=== PATIENT | female | born 1995 | race Two or more races ===

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

== ENCOUNTER 2017-02-19 12:42 | Emergency (ER) | payer MEDICAID ==
--- NOTE | 2017-02-19 12:57 | EDPHY ---
H & P Stated Complaint: PHILLIPS/COUGH/FEVER/NAUSEA/BREAST INFECTION Time Seen by Provider: 02/19/17 12:52 HPI/ROS: CHIEF COMPLAINT: fever, breast pain HISTORY OF PRESENT ILLNESS: 21-year-old female presents emergency department complaining of fever and chest pain and redness. Patient is 21 days ago . She has inverted nipples and had mastitis when she left the hospital. Patient has been pumping every 2 hours and massage her breasts. Patient was prescribed 7 days of Keflex on February 06, she has 3 pills remaining in the bottle, reports she stopped taking them 4 days ago. If she was taking them like she was prescribed they should have been finished 7 days ago. Patient reports her symptoms improved when she started the antibiotics and resolved for 2 weeks, her fever, breast pain and redness returned yesterday. Patient reports a temperature of 103degrees, right breast is worse than left. She has been pumping and massaging them. Patient reports a dry cough for the past 2 weeks. No sore throat, no ear pain, occasional post-tussive emesis. REVIEW OF SYSTEMS: A comprehensive 10 point review of systems is otherwise negative aside from elements mentioned in the history of present illness. Source: Patient Exam Limitations: No limitations - Personal History LMP (Females 10-55): Unknown Current Tetanus/Diphtheria Vaccine: Yes Current Tetanus Diphtheria and Acellular Pertussis (TDAP): Yes Tetanus Vaccine Date: <10 years - Medical/Surgical History Hx Asthma: No Hx Chronic Respiratory Disease: No Hx Diabetes: No Hx Cardiac Disease: No Hx Renal Disease: No Hx Cirrhosis: No Hx Alcoholism: No Hx HIV/AIDS: No Hx Splenectomy or Spleen Trauma: No Other PMH: anemia - Social History Smoking Status: Never smoked Constitutional: Initial Vital Signs Temperature (C) 37.4 C 02/19/17 12:45 Heart Rate 125 H 02/19/17 12:45 Respiratory Rate 18 02/19/17 12:45 Blood Pressure 106/70 02/19/17 12:45 O2 Sat (%) 94 02/19/17 12:45 O2 Delivery Mode Room Air Allergies/Adverse Reactions: No Known Allergies Allergy (Unverified 02/19/17 12:45) Home Medications: Medication Instructions Recorded IRON 1 tab PO BID 11/23/16 1 tab PO DAILY 11/23/16 Cephalexin [Keflex] 500 mg PO QID 14 Days 02/19/17 Hydrocodone/APAP 5/325 [[place] 1 tab PO Q4H PRN #14 tab 02/19/17 5/325] Medical Decision Making - Diagnostics Imaging Results: Imaging Impressions Breast Ultrasound 02/19/17 13:54 Impression: 1. Right breast cellulitis and mastitis by history. 2. No evidence of right breast drainable abscess, focal fluid collection, or suspicious findings. Findings and recommendations discussed with Emergency Department physician, Ashlie Martinez NP, at 1509 hour, 02/19/2017. Final report concurs with initial preliminary interpretation. Chest X-Ray 02/19/17 14:48 Impression: Normal except for minimal airways disease. No pneumonia or effusion. Chest x-ray independently reviewed by me Imaging: Discussed imaging studies w/ director call center sales Radiologist ED Course/Re-evaluation: 21-year-old female presents with mastitis. She took a partial course of Keflex and stopped 4 days ago, her symptoms returned yesterday with a fever of 103, bilateral breast pain right worse than left and redness. IV established, CBC, chemistry panel, lactate wound culture of breast milk expressed by me sent to the lab, urinalysis and chest xray ordered. Patient meets sepsis criteria with an elevated heart rate of 125, temperature of 37.4degrees and a source for infection. Her lactate is 1.2 and she has a normal creatinine, she does not meet severe sepsis criteria. Patient is given 2 L of normal saline. The ux consultant has come to speak with the patient. Patient has an elevated white blood cell count at 24,000 with a left shift. Chest x-ray shows airway disease, patient sounds like she has bronchitis, has had a cough for 2 weeks. No evidence of pneumonia. Urinalysis shows 15-25 WBCs. Ultrasound of the right breast shows no evidence of abscess. Patient is given Tylenol in the emergency department, repeat vital signs show a normal heart rate, normal blood pressure in a temperature of 37.0degrees. She is discharged home with a prescription for Keflex, discussed with her the importance of taking all of this medication, she is sent home with a prescription for albuterol inhaler and [place] to take as needed for cough. She has a follow-up appointment with Dr. Quick on Friday. She is given strict return precautions for worsening symptoms. Differential Diagnosis: Diagnosis considered but not limited to mastitis, abscess, cellulitis, pneumonia - Data Points Laboratory Results: Laboratory Results 02/19/17 13:06 02/19/17 13:06 02/19/17 02/19/17 02/19/17 15:40 13:06 13:06 WBC RBC Hgb Hct MCV MCH MCHC RDW Plt Count MPV Neut % (Auto) Lymph % (Auto) [place] % (Auto) Eos % (Auto) Baso % (Auto) Nucleat RBC Rel Count Absolute Neuts (auto) Absolute Lymphs (auto) Absolute Monos (auto) Absolute Eos (auto) Absolute Basos (auto) Absolute Nucleated RBC Immature Gran % Immature Gran # VBG Lactic Acid 1.2 mmol/L mmol/L (0.7-2.1) Sodium Potassium Chloride Carbon Dioxide Anion Gap BUN Creatinine Estimated GFR Glucose Calcium Beta HCG, Qual NEGATIVE Urine Color YELLOW Urine Appearance HAZY Urine pH 6.0 (5.0-7.5) Ur Specific [place] 1.017 (1.002-1.030) Urine Protein NEGATIVE (NEGATIVE) Urine Ketones NEGATIVE (NEGATIVE) Urine Blood 2+ H (NEGATIVE) Urine Nitrate NEGATIVE (NEGATIVE) Urine Bilirubin NEGATIVE (NEGATIVE) Urine Urobilinogen 4.0 EU H EU (0.2-1.0) Ur Leukocyte Esterase 1+ H (NEGATIVE) Urine RBC 5-10 /hpf H /hpf (0-3) Urine WBC 25-50 /hpf H /hpf (0-3) Ur Epithelial Cells TRACE /lpf /lpf (NONE-1+) Urine Bacteria TRACE /hpf H /hpf (NONE SEEN) Urine Mucus TRACE /lpf /lpf (NONE-1+) Ur Culture Indicated? INDICATED H (NI) Urine Glucose NEGATIVE (NEGATIVE) 02/19/17 02/19/17 13:06 13:06 WBC 24.00 10^3/uL H 10^3/uL (3.80-9.50) RBC 3.72 10^6/uL L 10^6/uL (4.18-5.33) Hgb 11.5 g/dL L g/dL (12.6-16.3) Hct 33.9 % L % (38.0-47.0) MCV 91.1 fL fL (81.5-99.8) MCH 30.9 pg pg (27.9-34.1) MCHC 33.9 g/dL g/dL (32.4-36.7) RDW 12.6 % % (11.5-15.2) Plt Count 314 10^3/uL 10^3/uL (150-400) MPV 10.0 fL fL (8.7-11.7) Neut % (Auto) 86.4 % H % (39.3-74.2) Lymph % (Auto) 6.3 % L % (15.0-45.0) [place] % (Auto) 6.1 % % (4.5-13.0) Eos % (Auto) 0.2 % L % (0.6-7.6) Baso % (Auto) 0.2 % L % (0.3-1.7) Nucleat RBC Rel Count 0.0 % % (0.0-0.2) Absolute Neuts (auto) 20.75 10^3/uL H 10^3/uL (1.70-6.50) Absolute Lymphs (auto) 1.50 10^3/uL 10^3/uL (1.00-3.00) Absolute Monos (auto) 1.47 10^3/uL H 10^3/uL (0.30-0.80) Absolute Eos (auto) 0.05 10^3/uL 10^3/uL (0.03-0.40) Absolute Basos (auto) 0.04 10^3/uL 10^3/uL (0.02-0.10) Absolute Nucleated RBC 0.00 10^3/uL 10^3/uL (0-0.01) Immature Gran % 0.8 % % (0.0-1.1) Immature Gran # 0.19 10^3/uL H 10^3/uL (0.00-0.10) VBG Lactic Acid Sodium 139 mEq/L mEq/L (134-144) Potassium 3.4 mEq/L L mEq/L (3.5-5.2) Chloride 102 mEq/L mEq/L (97-110) Carbon Dioxide 24 mEq/l mEq/l (22-31) Anion Gap 13 mEq/L mEq/L (8-16) BUN 5 mg/dL L mg/dL (7-23) Creatinine 0.5 mg/dL L mg/dL (0.6-1.0) Estimated GFR > 60 Glucose 78 mg/dL mg/dL (70-100) Calcium 8.9 mg/dL mg/dL (8.5-10.4) Beta HCG, Qual Urine Color Urine Appearance Urine pH Ur Specific [place] Urine Protein Urine Ketones Urine Blood Urine Nitrate Urine Bilirubin Urine Urobilinogen Ur Leukocyte Esterase Urine RBC Urine WBC Ur Epithelial Cells Urine Bacteria Urine Mucus Ur Culture Indicated? Urine Glucose Medications Given: Discontinued Medications Acetaminophen (Tylenol) 650 mg PO EDNOW ONE Stop: 02/19/17 13:23 Last Admin: 02/19/17 13:58 Dose: 650 mg Sodium Chloride (Ns) 1,000 mls @ 0 mls/hr IV ONCE ONE PRN Reason: Wide Open Stop: 02/19/17 13:52 Last Admin: 02/19/17 13:59 Dose: 1,000 mls Departure - Departure Disposition: Home, Routine, Self-Care Clinical Impression: Mastitis, acute, Bronchitis Urinary tract infection Qualifiers: Urinary tract infection type: acute cystitis Hematuria presence: without hematuria Qualified Code(s): N30.00 - Acute cystitis without hematuria Condition: Good Instructions: Mastitis (ED), Urinary Tract Infection in Women (ED), Acute Bronchitis (ED) Additional Instructions: Follow-up as discussed with the ux consultant. Warm compresses to your breasts 5 times a day for 5-10 minutes. You need to pump every 2 hours even in the middle of the night. Take your antibiotics as prescribed 4 times a day for 14 days. It is very important you take all of these. This will treat your breast infection and urinary tract infection. Use albuterol inhaler 2 puffs every 4-6 hours as needed for cough. Take 1/2 to 1 Vicodin every 4-6 hours as needed for cough, this will cause drowsiness, do not drive or operate any machinery while taking this. Take 600 mg of ibuprofen every 8 hours with food for 5 days. Follow-up with your primary care doctor as scheduled on Friday, return to the emergency department for worsening symptoms. Referrals: Ajith Quick MD [Primary Care Provider] - As per Instructions Prescriptions: Cephalexin [Keflex] 500 mg PO QID 14 Days Hydrocodone/APAP 5/325 [[place] 5/325] 1 tab PO Q4H PRN #14 tab PRN Reason: Pain, Moderate
[2017-02-19 13:16] LABS: % IMMATURE GRANULYOCYTES 0.8 % (0.0-1.1); ABSOLUTE IMMATURE GRANULOCYTES 0.19 10^3/uL (0.00-0.10); ADD DIFF? NO; ADD MORPH? NO; ADD SCAN? NO; ATYPICAL LYMPHOCYTE FLAG 0 (0-99); FRAGMENT RBC FLAG 0 (0-99); HEMATOCRIT 33.9 % (38.0-47.0); HEMOGLOBIN 11.5 g/dL (12.6-16.3); LEFT SHIFT FLG 40 (0-99); LIPEMIA HEMOLYSIS FLAG 90 (0-99); MEAN CELL HEMOGLOBIN 30.9 pg (27.9-34.1); MEAN CELL HEMOGLOBIN CONCENTR. 33.9 g/dL (32.4-36.7); MEAN CELL VOLUME 91.1 fL (81.5-99.8); PLATELET CLUMPS FLAG 0 (0-99); PLATELET COUNT 314 10^3/uL (150-400); RED BLOOD CELL COUNT 3.72 10^6/uL (4.18-5.33); RED CELL DISTRIBUTION WIDTH 12.6 % (11.5-15.2)
[2017-02-19] MEDS ORDERED: ACETAMINOPHEN 325 MG TAB PO ONE (13:22)
[2017-02-19 13:35] LABS: ANION GAP 13 mEq/L (8-16); CALCIUM 8.9 mg/dL (8.5-10.4); CARBON DIOXIDE 24 mEq/l (22-31); CHLORIDE 102 mEq/L (97-110); CREATININE 0.5 mg/dL (0.6-1.0); GLOMERULAR FILTRATION RATE > 60; GLUCOSE 78 mg/dL (70-100); POTASSIUM 3.4 mEq/L (3.5-5.2); SODIUM 139 mEq/L (134-144)
[2017-02-19] MEDS ORDERED: NS 1,000 ML IV ONE (13:51)
[2017-02-19 14:01] VITALS: O2SAT 96
[2017-02-19 15:54] LABS: COLOR YELLOW; LEUKOCYTE ESTERASE,URINE 1+ (NEGATIVE); NITRITE,URINE NEGATIVE (NEGATIVE)
[2017-02-19 15:56] LABS: BACTERIA TRACE /hpf (NONE SEEN); MUCUS TRACE /lpf (NONE-1+); WBC,URINE 25-50 /hpf (0-3)
[2017-02-19 16:31] VITALS: BP 109/54; PULSE 92; RESP 16; TEMP 98.2
== END 2017-02-19 16:28 | disposition home or self-care (01) ==
DX: N61.0 Mastitis without abscess (principal); J20.9 Acute bronchitis, unspecified; N30.00 Acute cystitis without hematuria; B96.89 Other specified bacterial agents as the cause of diseases classified elsewhere

== ENCOUNTER 2017-10-05 11:43 | Emergency (ER) | payer MEDICAID ==
[2017-10-05 11:48] VITALS: RESP 18
[2017-10-05] MEDS ORDERED: HYOSCYAMINE SULFATE 0.125 MG TAB PO ONE (12:12)
[2017-10-05] MEDS ORDERED: LIDOCAINE 2% VISCOUS 15 ML UDCUP PO ONE (12:12)
[2017-10-05] MEDS ORDERED: MAG HYDROX/AL HYDROX/SIMETH 30 ML UDCUP PO ONE (12:12)
--- NOTE | 2017-10-05 12:14 | EDPHY ---
H & P Stated Complaint: Epigastric pain w/nausea since last night after eating at [employer] Time Seen by Provider: 10/05/17 12:05 HPI/ROS: CHIEF COMPLAINT: Epigastric and right upper quadrant pain since last evening HISTORY OF PRESENT ILLNESS: 22-year-old female complaining of epigastric right upper quadrant pain since last evening with mild nausea. Reproducible with palpation. No vomiting. Bowel movements normal. No fever or chills. No radiation pain. No alcohol use. No chronic NSAID use. PRIMARY CARE PROVIDER:[facility] REVIEW OF SYSTEMS: A ten point review of systems was performed and is negative with the exception of the items mentioned in the HPI PAST MEDICAL & SURGICAL HISTORY: no history of abdominal surgeries. SOCIAL HISTORY:nonsmoker. PHYSICAL EXAM (Prior to examination, patient consented to physical exam, hands were washed and my usual and customary physical exam procedures followed) 1) GENERAL: Well-developed, well-nourished, alert and oriented. Appears to be in no acute distress. 2) HEAD: Normocephalic, atraumatic 3) HEENT: Pupils equal, round, reactive to light bilaterally. Sclera anicteric. 4) NECK: Full range of motion, no meningeal signs. 5) LUNGS: Clear auscultation bilaterally, no wheezes, no rhonchi, no retractions. 6) HEART: Regular rate and rhythm, no murmur, no heave, no gallop. 7) ABDOMEN: No guarding, tender to palpation epigastrium with positive Murray's , negative Rovsing's, negative peritoneal sign, 8) MUSCULOSKELETAL: Moving all extremities, no focal areas of tenderness, no obvious trauma. No peripheral edema or discoloration. 9) BACK: No CVA tenderness, no midline vertebral tenderness, no fluctuance, no step-off, no obvious trauma, no visual or palpable abnormality. 10) SKIN: No rash, no petechiae. 11) Psychiatric: Patient is oriented X 3, there is no agitation. DIFFERENTIAL DIAGNOSIS: In no particular order, including but not limited to biliary colic, cholecystitis, peptic ulcer disease, pancreatitis, and gastroenteritis. This is a partial list of diagnoses considered. These considerations are based on history, physical exam, past history and reassessment. - Personal History LMP (Females 10-55): Now Tetanus Vaccine Date: <10 years - Medical/Surgical History Hx Asthma: No Hx Chronic Respiratory Disease: No Hx Diabetes: No Hx Cardiac Disease: No Hx Renal Disease: No Hx Cirrhosis: No Hx Alcoholism: No Hx HIV/AIDS: No Hx Splenectomy or Spleen Trauma: No Other PMH: anemia - Social History Smoking Status: Never smoked Constitutional: Initial Vital Signs Temperature (C) 37.1 C 10/05/17 11:45 Heart Rate 87 10/05/17 11:45 Respiratory Rate 18 10/05/17 11:45 Blood Pressure 112/66 10/05/17 11:45 O2 Sat (%) 95 10/05/17 11:45 O2 Delivery Mode Room Air Allergies/Adverse Reactions: No Known Allergies Allergy (Verified 10/05/17 11:48) Home Medications: Medication Instructions Recorded Pantoprazole Sodium [Protonix 40mg 40 mg PO DAILY #30 tab 10/05/17 (RX)] Medical Decision Making - Diagnostics Imaging Results: Imaging Impressions Abdomen Ultrasound 10/05/17 12:12 Impression: Normal study. Findings were discussed with Dr. Nereida Orozco will convey the information to Jac De Luna PA-C at 13:38, on 10/05/2017. Images reviewed myself ED Course/Re-evaluation: 2:00 p.m.: Re-evaluation with serial examinations. Discussed her diagnostic results including normal ultrasound. She has been given GI cocktail and notes improvement symptoms. Doubt acute cholecystitis, doubt acute pancreatitis, doubt PE, doubt OR. We discussed possibility of peptic ulcer disease. Upon speaking the patient further she notes that intermittently for the past few years she has had similar symptoms. We discussed usual customary dietary precautions. She has no history of chronic NSAID use. Starting the patient on a proton pump inhibitor. Recommend GI follow-up as well as primary care follow- up. She feels comfortable being discharged all questions and concerns addressed by myself.Care of patient under supervision of secondary supervising physician Dr Orozco . - Data Points Laboratory Results: Laboratory Results 10/05/17 12:00 10/05/17 12:00 10/05/17 10/05/17 10/05/17 12:00 12:00 12:00 WBC 3.84 10^3/uL 10^3/uL (3.80-9.50) RBC 4.48 10^6/uL 10^6/uL (4.18-5.33) Hgb 13.8 g/dL g/dL (12.6-16.3) Hct 39.7 % % (38.0-47.0) MCV 88.6 fL fL (81.5-99.8) MCH 30.8 pg pg (27.9-34.1) MCHC 34.8 g/dL g/dL (32.4-36.7) RDW 13.0 % % (11.5-15.2) Plt Count 207 10^3/uL 10^3/uL (150-400) MPV 10.4 fL fL (8.7-11.7) Neut % (Auto) 74.7 % H % (39.3-74.2) Lymph % (Auto) 18.2 % % (15.0-45.0) [place] % (Auto) 5.5 % % (4.5-13.0) Eos % (Auto) 1.0 % % (0.6-7.6) Baso % (Auto) 0.3 % % (0.3-1.7) Nucleat RBC Rel Count 0.0 % % (0.0-0.2) Absolute Neuts (auto) 2.87 10^3/uL 10^3/uL (1.70-6.50) Absolute Lymphs (auto) 0.70 10^3/uL L 10^3/uL (1.00-3.00) Absolute Monos (auto) 0.21 10^3/uL L 10^3/uL (0.30-0.80) Absolute Eos (auto) 0.04 10^3/uL 10^3/uL (0.03-0.40) Absolute Basos (auto) 0.01 10^3/uL L 10^3/uL (0.02-0.10) Absolute Nucleated RBC 0.00 10^3/uL 10^3/uL (0-0.01) Immature Gran % 0.3 % % (0.0-1.1) Immature Gran # 0.01 10^3/uL 10^3/uL (0.00-0.10) Sodium 143 mEq/L mEq/L (134-144) Potassium 4.0 mEq/L mEq/L (3.5-5.2) Chloride 105 mEq/L mEq/L (97-110) Carbon Dioxide 23 mEq/l mEq/l (22-31) Anion Gap 15 mEq/L mEq/L (8-16) BUN 12 mg/dL mg/dL (7-23) Creatinine 0.6 mg/dL mg/dL (0.6-1.0) Estimated GFR > 60 Glucose 79 mg/dL mg/dL (70-100) Calcium 9.5 mg/dL mg/dL (8.5-10.4) Total Bilirubin 0.5 mg/dL mg/dL (0.1-1.4) Conjugated Bilirubin 0.2 mg/dL mg/dL (0.0-0.5) Unconjugated Bilirubin 0.3 mg/dL mg/dL (0.0-1.1) AST 18 IU/L IU/L (14-46) ALT 27 IU/L IU/L (9-52) Alkaline Phosphatase 77 IU/L IU/L (38-126) Total Protein 7.4 g/dL g/dL (6.3-8.2) Albumin 4.3 g/dL g/dL (3.5-5.0) Lipase 48 IU/L IU/L (23-300) Beta HCG, Qual NEGATIVE Medications Given: Discontinued Medications Al Hydroxide/Mg Hydroxide (Maalox Susp) 30 ml PO ONCE ONE Stop: 10/05/17 12:13 Last Admin: 10/05/17 12:16 Dose: 30 ml Hyoscyamine Sulfate (Levsin, Hyomax-Sl) 0.25 mg PO ONCE ONE Stop: 10/05/17 12:13 Last Admin: 10/05/17 12:16 Dose: 0.25 mg Lidocaine (Lidocaine 2% Viscous) 15 ml PO ONCE ONE Stop: 10/05/17 12:13 Last Admin: 10/05/17 12:16 Dose: 15 ml Departure - Departure Disposition: Home, Routine, Self-Care Clinical Impression: Epigastric pain Condition: Good Instructions: Epigastric Pain (ED) Additional Instructions: Do not eat spicy foods, avoid caffeine, soda, alcohol. Take yourr medicine as prescribed Referrals: Ajith Quick MD [Primary Care Provider] - 1-2 days without fail Herman Gtz MD [Medical Doctor] - 5-7 days, call for appt. (Dr Gtz is a dry plasterer) Prescriptions: Pantoprazole Sodium [Protonix 40mg (RX)] 40 mg PO DAILY #30 tab
[2017-10-05 12:18] LABS: % IMMATURE GRANULYOCYTES 0.3 % (0.0-1.1); ABSOLUTE IMMATURE GRANULOCYTES 0.01 10^3/uL (0.00-0.10); ADD DIFF? NO; ADD MORPH? NO; ADD SCAN? NO; ATYPICAL LYMPHOCYTE FLAG 10 (0-99); FRAGMENT RBC FLAG 0 (0-99); HEMATOCRIT 39.7 % (38.0-47.0); HEMOGLOBIN 13.8 g/dL (12.6-16.3); LEFT SHIFT FLG 0 (0-99); LIPEMIA HEMOLYSIS FLAG 90 (0-99); MEAN CELL HEMOGLOBIN 30.8 pg (27.9-34.1); MEAN CELL HEMOGLOBIN CONCENTR. 34.8 g/dL (32.4-36.7); MEAN CELL VOLUME 88.6 fL (81.5-99.8); MEAN PLATELET VOLUME 10.4 fL (8.7-11.7); PLATELET CLUMPS FLAG 0 (0-99); PLATELET COUNT 207 10^3/uL (150-400); RED BLOOD CELL COUNT 4.48 10^6/uL (4.18-5.33)
[2017-10-05 12:40] LABS: ALANINE AMINOTRANSFERASE 27 IU/L (9-52); ALBUMIN 4.3 g/dL (3.5-5.0); ALKALINE PHOSPHATASE 77 IU/L (38-126); ANION GAP 15 mEq/L (8-16); ASPARTATE AMINOTRANSFERASE 18 IU/L (14-46); BILIRUBIN,TOTAL 0.5 mg/dL (0.1-1.4); BILIRUBIN-CONJUGATED 0.2 mg/dL (0.0-0.5); BILIRUBIN-UNCONJUGATED 0.3 mg/dL (0.0-1.1); CALCIUM 9.5 mg/dL (8.5-10.4); CARBON DIOXIDE 23 mEq/l (22-31); CHLORIDE 105 mEq/L (97-110); CREATININE 0.6 mg/dL (0.6-1.0); GLOMERULAR FILTRATION RATE > 60; GLUCOSE 79 mg/dL (70-100); SODIUM 143 mEq/L (134-144); TOTAL PROTEIN 7.4 g/dL (6.3-8.2)
[2017-10-05 14:18] VITALS: BP 108/65; PULSE 78; TEMP 98.1; O2SAT 99
== END 2017-10-05 14:18 | disposition home or self-care (01) ==
DX: R10.13 Epigastric pain (principal)

== ENCOUNTER 2019-02-01 21:31 | Emergency (ER) | payer MEDICAID ==
--- NOTE | 2019-02-01 21:50 | EDPHY ---
H & P Stated Complaint: Burning in chest when she touches epigastric, radiates to upper back Time Seen by Provider: 02/01/19 21:53 HPI/ROS: HPI CHIEF COMPLAINT: Pain epigastric radiating to chest. HISTORY OF PRESENT ILLNESS: 23-year-old female, presents emergency room by private vehicle for burning discomfort in epigastric region that radiates into the chest. She reports burning sensation mainly in her epigastric region, goes substernal up into her chest. Does not go to her throat. She believes it may be reflux. She has been eating a lot of spicy foods recently. It has been present for 24 hr. Rather constant. No pleuritic pain, no shortness of breath , no fever, no vomiting. Denies any other chest pain. Past Medical History: Denies medical history Past Surgical History: Denies surgical history Social History: Denies drugs alcohol tobacco Family History: Noncontributory ROS REVIEW OF SYSTEMS: 10 Systems were reviewed and negative with the exception of the elements mentioned in the history of present illness. Exam Constitutional nontoxic triage nursing summary reviewed, vital signs reviewed, awake/alert. Eyes normal conjunctivae and sclera, EOMI, PERRLA. HENT normal inspection, atraumatic, moist mucus membranes, no epistaxis, neck supple/ no meningismus, no raccoon eyes. Respiratory clear to auscultation bilaterally, normal breath sounds, no respiratory distress, no wheezing. Cardiovascular rate normal, regular rhythm, no murmur, no edema, distal pulses normal. Gastrointestinal soft, non-tender, no rebound, no guarding, normal bowel sounds, no distension, no pulsatile mass. Genitourinary no CVA tenderness. Musculoskeletal no midline vertebral tenderness, full range of motion, no calf swelling, no tenderness of extremities, no meningismus, good pulses, neurovascularly intact. Skin pink, warm, & dry, no rash, skin atraumatic. Neurologic awake, alert and oriented x 3, AAOx3, moves all 4 extremities equally, motor intact, sensory intact, CN II-XII intact, normal cerebellar, normal vision, normal speech. Psychiatric normal mood/affect. Heme/Lymph/Immune no lymphadenopathy. Differential Diagnosis: Differential diagnosis includes but is not limited to and in no particular order: Bowel obstruction, appendicitis, gallbladder disease, diverticulitis, colitis, enteritis, perforated viscus, gastritis, GERD , esophagitis, urinary tract infection, pyelonephritis, kidney stones Medical Decision Making: Plan for this patient IV establishment IV fluid bolus , GI cocktail, EKG, troponin, basic labs, electrolytes and re-evaluate. Re-evaluation: EKG interpretation by me on record in [facility] system. Impression time of EKG 2200, sinus rhythm rate of 61, no signs of acute ischemia unremarkable EKG. 0104: Patient re-evaluated resting comfortably no acute distress. She states the GI cocktail helped her greatly. She no longer has any pain. Her abdomen re -examination this time is soft nontender. She is not vomiting. She p.o. Challenge well without difficulty and she would like to go home. Patient presents emergency room with burning discomfort in her epigastric region that radiates into her chest. This improved greatly after GI cocktail. Most likely due to gastritis GERD. Will prescribe Pepcid. Recommend return precautions return emergency room worsening abdominal pain, fever, vomiting, not doing well. EKG was unremarkable, troponin negative, labs are reassuring. Source: Patient - Personal History LMP (Females 10-55): 8-14 Days Ago Current Tetanus Diphtheria and Acellular Pertussis (TDAP): Yes Tetanus Vaccine Date: <10 years - Medical/Surgical History Hx Asthma: No Hx Chronic Respiratory Disease: No Hx Diabetes: No Hx Cardiac Disease: No Hx Renal Disease: No Hx Cirrhosis: No Hx Alcoholism: No Hx HIV/AIDS: No Hx Splenectomy or Spleen Trauma: No Other PMH: anemia - Social History Smoking Status: Never smoked Constitutional: Initial Vital Signs Temperature (C) 36.8 C 02/01/19 21:34 Heart Rate 66 02/01/19 21:34 Respiratory Rate 17 02/01/19 21:34 Blood Pressure 117/72 02/01/19 21:34 O2 Sat (%) 99 02/01/19 21:34 O2 Delivery Mode Room Air Allergies/Adverse Reactions: No Known Allergies Allergy (Verified 02/01/19 21:34) Home Medications: Medication Instructions Recorded Famotidine [Pepcid 20 MG (*)] 20 mg PO BID #30 tab 02/01/19 Medical Decision Making - Data Points Laboratory Results: Laboratory Results 02/01/19 22:08 02/01/19 22:08 02/01/19 02/01/19 02/01/19 22:12 22:08 22:08 WBC RBC Hgb Hct MCV MCH MCHC RDW Plt Count MPV Neut % (Auto) Lymph % (Auto) [place] % (Auto) Eos % (Auto) Baso % (Auto) Nucleat RBC Rel Count Absolute Neuts (auto) Absolute Lymphs (auto) Absolute Monos (auto) Absolute Eos (auto) Absolute Basos (auto) Absolute Nucleated RBC Immature Gran % Immature Gran # Sodium 135 mEq/L mEq/L (135-145) Potassium 3.7 mEq/L mEq/L (3.5-5.2) Chloride 106 mEq/L mEq/L (97-110) Carbon Dioxide 22 mEq/l mEq/l (22-31) Anion Gap 7 mEq/L mEq/L (6-14) BUN 13 mg/dL mg/dL (7-23) Creatinine 0.5 mg/dL L mg/dL (0.6-1.0) Estimated GFR > 60 Glucose 91 mg/dL mg/dL (70-100) Calcium 9.2 mg/dL mg/dL (8.5-10.4) Total Bilirubin 0.2 mg/dL mg/dL (0.1-1.4) Conjugated Bilirubin 0.2 mg/dL mg/dL (0.0-0.5) Unconjugated Bilirubin 0.0 mg/dL mg/dL (0.0-1.1) AST 17 IU/L IU/L (14-46) ALT 26 IU/L IU/L (9-52) Alkaline Phosphatase 49 IU/L IU/L (38-126) POC Troponin I 0.01 ng/mL ng/mL (0.00-0.08) Total Protein 7.0 g/dL g/dL (6.3-8.2) Albumin 4.2 g/dL g/dL (3.5-5.0) Lipase 66 IU/L IU/L (23-300) Beta HCG, Qual NEGATIVE 02/01/19 22:08 WBC 8.08 10^3/uL 10^3/uL (3.80-9.50) RBC 4.18 10^6/uL 10^6/uL (4.18-5.33) Hgb 12.5 g/dL L g/dL (12.6-16.3) Hct 36.6 % L % (38.0-47.0) MCV 87.6 fL fL (81.5-99.8) MCH 29.9 pg pg (27.9-34.1) MCHC 34.2 g/dL g/dL (32.4-36.7) RDW 13.3 % % (11.5-15.2) Plt Count 195 10^3/uL 10^3/uL (150-400) MPV 11.3 fL fL (8.7-11.7) Neut % (Auto) 56.0 % % (39.3-74.2) Lymph % (Auto) 36.8 % % (15.0-45.0) [place] % (Auto) 5.8 % % (4.5-13.0) Eos % (Auto) 0.9 % % (0.6-7.6) Baso % (Auto) 0.4 % % (0.3-1.7) Nucleat RBC Rel Count 0.0 % % (0.0-0.2) Absolute Neuts (auto) 4.53 10^3/uL 10^3/uL (1.70-6.50) Absolute Lymphs (auto) 2.97 10^3/uL 10^3/uL (1.00-3.00) Absolute Monos (auto) 0.47 10^3/uL 10^3/uL (0.30-0.80) Absolute Eos (auto) 0.07 10^3/uL 10^3/uL (0.03-0.40) Absolute Basos (auto) 0.03 10^3/uL 10^3/uL (0.02-0.10) Absolute Nucleated RBC 0.00 10^3/uL 10^3/uL (0-0.01) Immature Gran % 0.1 % % (0.0-1.1) Immature Gran # 0.01 10^3/uL 10^3/uL (0.00-0.10) Sodium Potassium Chloride Carbon Dioxide Anion Gap BUN Creatinine Estimated GFR Glucose Calcium Total Bilirubin Conjugated Bilirubin Unconjugated Bilirubin AST ALT Alkaline Phosphatase POC Troponin I Total Protein Albumin Lipase Beta HCG, Qual Medications Given: Discontinued Medications Al Hydroxide/Mg Hydroxide (Maalox Susp) 30 ml PO ONCE ONE Stop: 02/01/19 21:53 Last Admin: 02/01/19 22:09 Dose: 30 ml Hyoscyamine Sulfate (Levsin, Hyomax-Sl) 0.25 mg PO ONCE ONE Stop: 02/01/19 21:53 Last Admin: 02/01/19 22:09 Dose: 0.25 mg Sodium Chloride (Ns) 1,000 mls @ 0 mls/hr IV EDNOW ONE; Wide Open PRN Reason: Protocol Stop: 02/01/19 21:53 Last Admin: 02/01/19 22:08 Dose: 1,000 mls Lidocaine (Lidocaine 2% Viscous) 15 ml PO ONCE ONE Stop: 02/01/19 21:53 Last Admin: 02/01/19 22:09 Dose: 15 ml Point of Care Test Results: Chemistry 02/01/19 22:12 POC Troponin I 0.01 ng/mL ng/mL (0.00-0.08) Departure - Departure Disposition: Home, Routine, Self-Care Clinical Impression: Gastritis Qualifiers: Gastritis type: unspecified gastritis Chronicity: acute Gastritis bleeding: without bleeding Qualified Code(s): K29.00 - Acute gastritis without bleeding Condition: Good Instructions: Gastritis (ED) Additional Instructions: 1. [place] diet no spicy fatty greasy foods. 2. Stay well-hydrated. 3. Pepcid as prescribed Referrals: NONE *PRIMARY CARE P,. [Primary Care Provider] - As per Instructions [facility],. [Clinic] - As per Instructions Prescriptions: Famotidine [Pepcid 20 MG (*)] 20 mg PO BID #30 tab
[2019-02-01] MEDS ORDERED: LIDOCAINE 2% VISCOUS 15 ML UDCUP PO ONE (21:52)
[2019-02-01] MEDS ORDERED: HYOSCYAMINE SULFATE 0.125 MG TAB PO ONE (21:52)
[2019-02-01] MEDS ORDERED: NS 1,000 ML IV ONE (21:52)
[2019-02-01] MEDS ORDERED: MAG HYDROX/AL HYDROX/SIMETH 30 ML UDCUP PO ONE (21:52)
[2019-02-01 22:22] LABS: PLATELET COUNT 195 10^3/uL (150-400)
[2019-02-02 01:20] VITALS: BP 114/68
--- NOTE | 2019-02-04 08:04 | CPEKG ---
Test Reason : OPEN Blood Pressure : / mmHG Vent. Rate : 061 BPM Atrial Rate : 060 BPM P-R Int : 125 ms QRS Dur : 076 ms QT Int : 417 ms P-R-T Axes : 018 069 036 degrees QTc Int : 420 ms Sinus rhythm Confirmed by Miguel Alamo ([id number]) on 02/04/2019 8:03:55 AM Referred By: Miguel Alamo Confirmed By:Miguel Alamo
== END 2019-02-02 01:20 | disposition home or self-care (01) ==
DX: K29.00 Acute gastritis without bleeding (principal); E86.9 Volume depletion, unspecified
CPT/HCPCS: 84484-ER